=== PATIENT | male | born 1960 | race Caucasian/White ===

== ENCOUNTER 2024-04-24 10:15 | Inpatient (IN) | payer MEDICARE ==
[2024-04-24] MEDS ORDERED: Aspirin Chewable 81 MG TAB ONE (11:06)
[2024-04-24] MEDS ORDERED: Ondansetron ODT 4 MG TAB ONE (11:06)
[2024-04-24 11:07] LABS: #Basophils Less than 0.03 10x3/uL (0.0-0.2); #Eosinophils Less than 0.03 10x3/uL (0.0-0.7); %Basophils 0.1 % (0.0-1.0); %Lymphocytes 7.1 % (21.0-51.0); %Monocytes 6.9 % (0.0-10.0); %Neutrophils 85.3 % (42.0-75.0); Hematocrit 38.4 % (42.0-52.0); Hemoglobin 12.9 g/dL (14.0-18.0); Mean Corpuscular HGB CONC 33.6 g/dL (32.0-36.0); Mean Corpuscular Hemoglobin 29.7 pg (27.0-31.0); Mean Corpuscular Volume 88.5 fL (78.0-98.0); Mean Platelet Volume 11.6 fL (7.4-10.4); Platelet Count 139 10x3/uL (130-400); Red Blood Cell (RBC) Count 4.34 mill/uL (4.70-6.10)
[2024-04-24 11:30] LABS: ALT (SGPT) 292 U/L (8-55); AST (SGOT) 184 U/L (5-34); Albumin 3.5 g/dL (3.4-4.8); Alkaline Phosphatase 70 U/L (40-110); Anion Gap 22 mmol/L (10-20); BUN (Urea Nitrogen) 81 mg/dL (8.4-25.7); Bilirubin, Total 0.9 mg/dL (0.2-1.2); Calc. Creatinine Clearance 0 mL/min (70-130); Calcium 8.7 mg/dL (7.8-10.44); Carbon Dioxide 19 mmol/L (23-31); Chloride 99 mmol/L (98-107); Estimated GFR 20; Globulin 2.7 g/dL (2.4-3.5); Glucose 210 mg/dL (80-115); Potassium 4.9 mmol/L (3.5-5.1); Protein, Total 6.2 g/dL (5.8-8.1); Sodium 135 mmol/L (136-145)
[2024-04-24 12:01] LABS: Troponin I 0.043 ng/mL (< 0.028)
[2024-04-24] MEDS ORDERED: Famotidine/PF 20 mg/2ml Vial ONE (12:05)
[2024-04-24] MEDS ORDERED: Pantoprazole 40 MG VIAL ONE (12:05)
[2024-04-24] MEDS ORDERED: Guaifenesin DM 100-10/5 ML UDCUP PO PRN (12:34)
[2024-04-24] MEDS ORDERED: DOBUTamine 500 mg/250 ml 250 ML IVPB SCH (12:45)
[2024-04-24] MEDS ORDERED: DOBUTamine 500 mg/250 ml 250 ML ONE (12:47)
[2024-04-24] MEDS ORDERED: Enoxaparin 100 MG (1 mL) SYRINGE ONE (15:30)
[2024-04-24] MEDS: Furosemide 40 MG (4 mL) VIAL SLOW IVP SCH (16:55)
[2024-04-24] MEDS ORDERED: Electrolyte Replacement Protocol 1 EACH FS SCH (17:15)
[2024-04-24 17:52] LABS: Troponin I 0.042 ng/mL (< 0.028)
[2024-04-24] MEDS: Amiodarone 200 MG TAB PO SCH (21:12)
[2024-04-25] MEDS ORDERED: Apixaban 5 MG TAB PO SCH ×2 (01:00→11:00)
[2024-04-25] MEDS: Apixaban 5 MG TAB PO SCH (03:00)
[2024-04-25] MEDS: Acetaminophen 325 MG TAB PO PRN (03:45)
[2024-04-25 04:02] LABS: #Basophils Less than 0.03 10x3/uL (0.0-0.2); #Eosinophils Less than 0.03 10x3/uL (0.0-0.7); %Basophils 0.1 % (0.0-1.0); %Eosinophils 0.1 % (0.0-10.0); %Lymphocytes 7.2 % (21.0-51.0); %Monocytes 8.1 % (0.0-10.0); Hematocrit 37.5 % (42.0-52.0); Hemoglobin 12.5 g/dL (14.0-18.0); Mean Corpuscular HGB CONC 33.3 g/dL (32.0-36.0); Mean Corpuscular Hemoglobin 30.5 pg (27.0-31.0); Mean Corpuscular Volume 91.5 fL (78.0-98.0); Mean Platelet Volume 10.4 fL (7.4-10.4); Platelet Count 154 10x3/uL (130-400); RBC Distribution Width 15.1 % (11.5-14.5)
[2024-04-25 04:28] LABS: ALT (SGPT) 250 U/L (8-55); AST (SGOT) 134 U/L (5-34); Albumin 3.5 g/dL (3.4-4.8); Alkaline Phosphatase 69 U/L (40-110); Anion Gap 16 mmol/L (10-20); BUN (Urea Nitrogen) 68 mg/dL (8.4-25.7); Bilirubin, Total 0.9 mg/dL (0.2-1.2); Calc. Creatinine Clearance 48 mL/min (70-130); Calcium 8.7 mg/dL (7.8-10.44); Carbon Dioxide 25 mmol/L (23-31); Chloride 101 mmol/L (98-107); Estimated GFR 30; Globulin 2.6 g/dL (2.4-3.5); Glucose 75 mg/dL (80-115); Magnesium 2.1 mg/dL (1.6-2.6); Potassium 3.8 mmol/L (3.5-5.1); Protein, Total 6.1 g/dL (5.8-8.1); Sodium 138 mmol/L (136-145)
[2024-04-25] MEDS ORDERED: Enoxaparin 30 MG (0.3 mL) SYRINGE SC SCH (09:00)
[2024-04-25] MEDS: Pantoprazole DR 40 MG TAB PO SCH (09:17)
[2024-04-25] MEDS: Potassium Chloride 20 MEQ TAB PO SCH (09:17)
[2024-04-25] MEDS: DOBUTamine 500 mg/250 ml 250 ML IVPB SCH (10:37)
[2024-04-25] MEDS ORDERED: Glucagon 1 MG/ML KIT IM PRN (14:02)
[2024-04-25] MEDS ORDERED: Dextrose 5% in Water 1,000 ML IV PRN (14:02)
[2024-04-25] MEDS: Insulin Lispro 100 UNIT/ML 10 ML VIAL SC PRN (16:10)
[2024-04-26] MEDS: DOPamine 400 MG/D5W 250 ML 250 ML IVPB SCH (00:28)
[2024-04-26] MEDS: Ondansetron PF 4 MG/2 ML Vial IVP PRN (00:30)
[2024-04-26] MEDS: DOPamine 400 MG/D5W 250 ML 250 ML ONE (00:30)
[2024-04-26] MEDS: Sodium Chloride 0.9% 250 ML IV SCH (04:22)
[2024-04-26 05:40] LABS: Anion Gap 14 mmol/L (10-20); BUN (Urea Nitrogen) 49 mg/dL (8.4-25.7); Calc. Creatinine Clearance 49 mL/min (70-130); Calcium 8.6 mg/dL (7.8-10.44); Carbon Dioxide 29 mmol/L (23-31); Chloride 96 mmol/L (98-107); Estimated GFR 36; Glucose 172 mg/dL (80-115); Sodium 135 mmol/L (136-145)
[2024-04-26 06:41] LABS: #Basophils Less than 0.03 10x3/uL (0.0-0.2); %Basophils 0.1 % (0.0-1.0); %Eosinophils 1.8 % (0.0-10.0); %Lymphocytes 5.4 % (21.0-51.0); %Neutrophils 82.1 % (42.0-75.0); Hematocrit 36.6 % (42.0-52.0); Hemoglobin 11.8 g/dL (14.0-18.0); Mean Corpuscular HGB CONC 32.2 g/dL (32.0-36.0); Mean Corpuscular Hemoglobin 30.1 pg (27.0-31.0); Mean Corpuscular Volume 93.4 fL (78.0-98.0); Mean Platelet Volume 11.4 fL (7.4-10.4); Platelet Count 148 10x3/uL (130-400); RBC Distribution Width 15.2 % (11.5-14.5); Red Blood Cell (RBC) Count 3.92 mill/uL (4.70-6.10)
[2024-04-26] MEDS: Apixaban 5 MG TAB PO SCH (20:11)
[2024-04-27] MEDS: Dexmedetomidine In 0.9 % NaCl 100 ML IV SCH (02:35)
[2024-04-27] MEDS: Dexmedetomidine In 0.9 % NaCl 100 ML ONE (03:09)
[2024-04-27 04:56] LABS: Anion Gap 11 mmol/L (10-20); BUN (Urea Nitrogen) 38 mg/dL (8.4-25.7); Calc. Creatinine Clearance 60 mL/min (70-130); Calcium 8.2 mg/dL (7.8-10.44); Carbon Dioxide 29 mmol/L (23-31); Chloride 95 mmol/L (98-107); Estimated GFR 45; Glucose 279 mg/dL (80-115); Potassium 4.6 mmol/L (3.5-5.1); Sodium 130 mmol/L (136-145)
[2024-04-27] MEDS: Senokot S 8.6-50 MG TAB PO PRN (05:08)
[2024-04-27 05:45] VITALS: BMI 33.0
[2024-04-27] MEDS: Lactulose 20 GM (30 mL) UDCUP PO SCH (11:50)
[2024-04-28 04:00] LABS: ALT (SGPT) 128 U/L (8-55); AST (SGOT) 42 U/L (5-34); Albumin 3.3 g/dL (3.4-4.8); Alkaline Phosphatase 74 U/L (40-110); Anion Gap 13 mmol/L (10-20); BUN (Urea Nitrogen) 30 mg/dL (8.4-25.7); Bilirubin, Total 1.1 mg/dL (0.2-1.2); Calc. Creatinine Clearance 66 mL/min (70-130); Calcium 8.4 mg/dL (7.8-10.44); Carbon Dioxide 29 mmol/L (23-31); Chloride 96 mmol/L (98-107); Estimated GFR 53; Globulin 2.6 g/dL (2.4-3.5); Glucose 240 mg/dL (80-115); Potassium 4.6 mmol/L (3.5-5.1); Protein, Total 5.9 g/dL (5.8-8.1); Sodium 133 mmol/L (136-145)
[2024-04-28] MEDS ORDERED: Vasopressin 20 UNITS/ML VIAL ONE (08:26)
[2024-04-28] MEDS ORDERED: Etomidate 40 MG (20 mL) VIAL ONE (08:27)
[2024-04-28] MEDS ORDERED: Lidocaine 2% PF 5 ML VIAL ONE (08:29)
[2024-04-28] MEDS ORDERED: ePHEDrine Sulfate 50 MG/10 ML VIAL ONE (08:29)
[2024-04-28] MEDS ORDERED: PROPOFOL 20 ML ONE (08:30)
[2024-04-28] MEDS ORDERED: PHENYLEPHRINE-NS 100 MCG/ML 10 ML SYRINGE ONE (09:25)
[2024-04-28] MEDS: Carvedilol 3.125 MG TAB PO SCH (16:43)
[2024-04-28] MEDS: Melatonin 3 MG TAB PO PRN (23:13)
[2024-04-29 04:25] LABS: Anion Gap 13 mmol/L (10-20); BUN (Urea Nitrogen) 25 mg/dL (8.4-25.7); Calc. Creatinine Clearance 68 mL/min (70-130); Calcium 8.3 mg/dL (7.8-10.44); Carbon Dioxide 30 mmol/L (23-31); Chloride 93 mmol/L (98-107); Estimated GFR 55; Glucose 237 mg/dL (80-115); Potassium 4.4 mmol/L (3.5-5.1); Sodium 132 mmol/L (136-145)
[2024-04-29] MEDS: DOBUTamine 500 mg/250 ml 250 ML IVPB SCH (11:26)
[2024-04-30 05:14] LABS: Anion Gap 16 mmol/L (10-20); BUN (Urea Nitrogen) 31 mg/dL (8.4-25.7); Calc. Creatinine Clearance 61 mL/min (70-130); Carbon Dioxide 26 mmol/L (23-31); Chloride 92 mmol/L (98-107); Estimated GFR 47; Glucose 317 mg/dL (80-115); Potassium 4.5 mmol/L (3.5-5.1); Sodium 129 mmol/L (136-145)
[2024-04-30] MEDS: Furosemide 40 MG TAB PO SCH (09:00)
[2024-04-30] MEDS: Empagliflozin 10 MG TAB PO SCH (10:18)
[2024-05-01 05:10] LABS: Anion Gap 16 mmol/L (10-20); BUN (Urea Nitrogen) 37 mg/dL (8.4-25.7); Calc. Creatinine Clearance 54 mL/min (70-130); Calcium 9.4 mg/dL (7.8-10.44); Carbon Dioxide 28 mmol/L (23-31); Chloride 93 mmol/L (98-107); Estimated GFR 40; Glucose 227 mg/dL (80-115); Potassium 4.4 mmol/L (3.5-5.1); Sodium 133 mmol/L (136-145)
[2024-05-01] MEDS: Furosemide 40 MG TAB PO SCH (05:58)
[2024-05-01] MEDS ORDERED: Carvedilol 3.125 MG TAB PO SCH (07:39)
[2024-05-01] MEDS: Aspirin 81 mg Enteric Coated Tablet PO SCH (09:17)
[2024-05-01] MEDS: Ranolazine ER 500 MG TAB PO SCH (09:17)
[2024-05-01] MEDS: Empagliflozin 10 MG TAB PO SCH (09:17)
[2024-05-01] MEDS: Carvedilol 6.25 MG TAB PO SCH (09:18)
[2024-05-01 13:49] LABS: Glucose POC Confirmation 440 mg/dL (83-110)
[2024-05-01] MEDS: Insulin Lispro 100 UNIT/ML 10 ML VIAL SC SCH (14:41)
[2024-05-01 15:37] VITALS: BMI 33.5
[2024-05-01] MEDS: Amiodarone 200 MG TAB PO SCH (20:45)
[2024-05-01] MEDS: metFORMIN 500 MG TAB PO SCH (20:45)
[2024-05-01] MEDS: Atorvastatin Calcium 40 MG TAB PO SCH (20:45)
[2024-05-02 05:24] LABS: Anion Gap 16 mmol/L (10-20); BUN (Urea Nitrogen) 37 mg/dL (8.4-25.7); Calc. Creatinine Clearance 51 mL/min (70-130); Calcium 9.2 mg/dL (7.8-10.44); Carbon Dioxide 26 mmol/L (23-31); Chloride 97 mmol/L (98-107); Estimated GFR 37; Glucose 216 mg/dL (80-115); Potassium 4.5 mmol/L (3.5-5.1); Sodium 134 mmol/L (136-145)
[2024-05-02] MEDS ORDERED: Glimepiride 4 MG TAB PO SCH (07:30)
[2024-05-02] MEDS: hydrALAZINE 25 MG TAB PO SCH (08:53)
[2024-05-02] MEDS: Glimepiride 4 MG TAB PO SCH (08:55)
[2024-05-02] MEDS: Apixaban 5 MG TAB PO SCH (20:49)
[2024-05-03 04:31] LABS: Anion Gap 19 mmol/L (10-20); BUN (Urea Nitrogen) 36 mg/dL (8.4-25.7); Calc. Creatinine Clearance 58 mL/min (70-130); Calcium 9.3 mg/dL (7.8-10.44); Carbon Dioxide 24 mmol/L (23-31); Chloride 95 mmol/L (98-107); Estimated GFR 46; Glucose 203 mg/dL (80-115); Potassium 4.3 mmol/L (3.5-5.1); Sodium 134 mmol/L (136-145)
[2024-05-03] MEDS: metFORMIN 500 MG TAB PO SCH (08:28)
[2024-05-03] MEDS ORDERED: Insulin Glargine 30 UNITS/0.3 ML VIAL SC SCH (09:00)
[2024-05-03] MEDS ORDERED: Metoclopramide HCl 10 MG (2 mL) VIAL IVP PRN (14:26)
[2024-05-03] MEDS: Metoclopramide HCl 10 MG (2 mL) VIAL IVP SCH (14:35)
[2024-05-04] MEDS: Bisacodyl 10 MG SUPP PR PRN (02:26)
[2024-05-04 05:43] LABS: Anion Gap 22 mmol/L (10-20); BUN (Urea Nitrogen) 50 mg/dL (8.4-25.7); Calc. Creatinine Clearance 40 mL/min (70-130); Calcium 9.2 mg/dL (7.8-10.44); Carbon Dioxide 19 mmol/L (23-31); Chloride 94 mmol/L (98-107); Estimated GFR 29; Glucose 209 mg/dL (80-115); Potassium 5.7 mmol/L (3.5-5.1); Sodium 129 mmol/L (136-145)
[2024-05-04 09:16] LABS: Anion Gap 19 mmol/L (10-20); BUN (Urea Nitrogen) 51 mg/dL (8.4-25.7); Calc. Creatinine Clearance 40 mL/min (70-130); Carbon Dioxide 22 mmol/L (23-31); Chloride 93 mmol/L (98-107); Estimated GFR 29; Glucose 272 mg/dL (80-115); Potassium 5.3 mmol/L (3.5-5.1); Sodium 129 mmol/L (136-145)
[2024-05-04] MEDS ORDERED: Metoclopramide HCl 10 MG (2 mL) VIAL IVP PRN (09:53)
[2024-05-04] MEDS: Sodium Chloride 0.9% 1,000 ML IV SCH (11:56)
[2024-05-04] MEDS: LOKELMA 10 GM PACKET PO SCH (11:56)
[2024-05-04 17:17] LABS: Creatinine, Urine 81.87 mg/dL (63-166); Protein, Urine Random Quant 22 mg/dL (1-14); Sodium, Urine Less than 20 mmol/L (Not Available); Urea Nitrogen, Random Urine 496 mg/dl
[2024-05-04] MEDS: Insulin Glargine 30 UNITS/0.3 ML VIAL SC SCH (21:16)
[2024-05-05 05:26] LABS: Iron 35 ug/dL (65-175); Iron Binding Capacity, Total 341 mcg/dL (261-462)
[2024-05-05 05:28] LABS: Anion Gap 18 mmol/L (10-20); BUN (Urea Nitrogen) 53 mg/dL (8.4-25.7); Calc. Creatinine Clearance 40 mL/min (70-130); Carbon Dioxide 21 mmol/L (23-31); Chloride 97 mmol/L (98-107); Estimated GFR 30; Glucose 146 mg/dL (80-115); Potassium 4.3 mmol/L (3.5-5.1); Sodium 132 mmol/L (136-145)
[2024-05-05] MEDS: Mineral Oil ENEMA PR SCH (15:27)
[2024-05-06 05:22] LABS: Anion Gap 15 mmol/L (10-20); BUN (Urea Nitrogen) 41 mg/dL (8.4-25.7); Calc. Creatinine Clearance 53 mL/min (70-130); Calcium 8.8 mg/dL (7.8-10.44); Carbon Dioxide 23 mmol/L (23-31); Chloride 98 mmol/L (98-107); Estimated GFR 41; Glucose 64 mg/dL (80-115); Potassium 3.9 mmol/L (3.5-5.1); Sodium 132 mmol/L (136-145)
[2024-05-06] MEDS: Lactulose 20 GM (30 mL) UDCUP PO SCH (14:36)
[2024-05-06] MEDS: Dextrose 50% Abboject 50 ML SYRINGE SLOW IVP PRN (19:47)
[2024-05-07 06:10] LABS: #Basophils Less than 0.03 10x3/uL (0.0-0.2); %Basophils 0.2 % (0.0-1.0); %Eosinophils 0.5 % (0.0-10.0); %Lymphocytes 6.8 % (21.0-51.0); %Monocytes 8.5 % (0.0-10.0); %Neutrophils 83.4 % (42.0-75.0); Hematocrit 42.6 % (42.0-52.0); Hemoglobin 13.7 g/dL (14.0-18.0); Mean Corpuscular HGB CONC 32.2 g/dL (32.0-36.0); Mean Corpuscular Hemoglobin 29.4 pg (27.0-31.0); Mean Corpuscular Volume 91.4 fL (78.0-98.0); Mean Platelet Volume 10.9 fL (7.4-10.4); Platelet Count 185 10x3/uL (130-400); RBC Distribution Width 15.6 % (11.5-14.5); Red Blood Cell (RBC) Count 4.66 mill/uL (4.70-6.10)
[2024-05-07 06:30] LABS: ALT (SGPT) 28 U/L (8-55); AST (SGOT) 26 U/L (5-34); Albumin 3.6 g/dL (3.4-4.8); Alkaline Phosphatase 85 U/L (40-110); Anion Gap 16 mmol/L (10-20); BUN (Urea Nitrogen) 37 mg/dL (8.4-25.7); Calc. Creatinine Clearance 57 mL/min (70-130); Carbon Dioxide 24 mmol/L (23-31); Chloride 95 mmol/L (98-107); Estimated GFR 43; Glucose 90 mg/dL (80-115); Protein, Total 6.6 g/dL (5.8-8.1); Sodium 131 mmol/L (136-145)
[2024-05-07] MEDS: Insulin Glargine 30 UNITS/0.3 ML VIAL SC SCH (09:13)
[2024-05-07] MEDS: Lactulose 20 GM (30 mL) UDCUP PO SCH (09:14)
[2024-05-08 06:21] LABS: #Basophils Less than 0.03 10x3/uL (0.0-0.2); %Basophils 0.2 % (0.0-1.0); %Eosinophils 0.6 % (0.0-10.0); %Lymphocytes 7.6 % (21.0-51.0); %Monocytes 8.4 % (0.0-10.0); %Neutrophils 82.6 % (42.0-75.0); Hematocrit 42.4 % (42.0-52.0); Hemoglobin 13.3 g/dL (14.0-18.0); Mean Corpuscular HGB CONC 31.4 g/dL (32.0-36.0); Mean Corpuscular Hemoglobin 29.6 pg (27.0-31.0); Mean Corpuscular Volume 94.2 fL (78.0-98.0); Mean Platelet Volume 10.9 fL (7.4-10.4); Platelet Count 210 10x3/uL (130-400); RBC Distribution Width 15.7 % (11.5-14.5)
[2024-05-08 07:24] LABS: ALT (SGPT) 29 U/L (8-55); AST (SGOT) 30 U/L (5-34); Albumin 3.6 g/dL (3.4-4.8); Alkaline Phosphatase 84 U/L (40-110); Anion Gap 17 mmol/L (10-20); BUN (Urea Nitrogen) 33 mg/dL (8.4-25.7); Calc. Creatinine Clearance 60 mL/min (70-130); Calcium 9.1 mg/dL (7.8-10.44); Carbon Dioxide 23 mmol/L (23-31); Chloride 96 mmol/L (98-107); Estimated GFR 43; Globulin 2.9 g/dL (2.4-3.5); Glucose 53 mg/dL (80-115); Potassium 4.2 mmol/L (3.5-5.1); Protein, Total 6.5 g/dL (5.8-8.1); Sodium 132 mmol/L (136-145)
[2024-05-08] MEDS: Insulin Glargine 30 UNITS/0.3 ML VIAL SC SCH (09:26)
[2024-05-08] MEDS: Empagliflozin 10 MG TAB PO SCH (09:27)
[2024-05-09 04:37] LABS: Anion Gap 14 mmol/L (10-20); BUN (Urea Nitrogen) 34 mg/dL (8.4-25.7); Calc. Creatinine Clearance 60 mL/min (70-130); Calcium 8.8 mg/dL (7.8-10.44); Carbon Dioxide 24 mmol/L (23-31); Chloride 98 mmol/L (98-107); Estimated GFR 43; Glucose 93 mg/dL (80-115); Potassium 4.2 mmol/L (3.5-5.1); Sodium 132 mmol/L (136-145)
[2024-05-09] MEDS: Insulin Glargine 30 UNITS/0.3 ML VIAL SC SCH (10:53)
[2024-05-09] MEDS: Hydrocortisone 2.5% Cream 30 GM TUBE TOP SCH (21:00)
[2024-05-10 05:25] LABS: Anion Gap 17 mmol/L (10-20); BUN (Urea Nitrogen) 34 mg/dL (8.4-25.7); Calc. Creatinine Clearance 51 mL/min (70-130); Calcium 8.6 mg/dL (7.8-10.44); Carbon Dioxide 23 mmol/L (23-31); Chloride 94 mmol/L (98-107); Estimated GFR 37; Glucose 178 mg/dL (80-115); Potassium 4.6 mmol/L (3.5-5.1); Sodium 129 mmol/L (136-145)
[2024-05-10] MEDS: Insulin Glargine 30 UNITS/0.3 ML VIAL SC SCH (09:20)
[2024-05-10 12:14] VITALS: TEMP 96.9
[2024-05-10 16:03] VITALS: BP 111/78
== END 2024-05-10 16:50 | disposition home health service (06) | DRG 291 ==
LOC: ERS 10:15 → ERHOLD 12:36 → CCU 16:36 → 2NO 04-29 06:40
PROVIDERS: ADMIT Hospitalist; ATTEND Internal Medicine
PROC: 5A2204Z Restoration of Cardiac Rhythm, Single (ICD-10-PCS; principal; 2024-05-01)
DX: I13.0 Hypertensive heart and chronic kidney disease with heart failure and stage 1 through stage 4 chronic kidney disease, or unspecified chronic kidney disease (principal); I50.23 Acute on chronic systolic (congestive) heart failure; R57.0 Cardiogenic shock; J96.01 Acute respiratory failure with hypoxia; N17.9 Acute kidney failure, unspecified; I48.92 Unspecified atrial flutter; I47.20 Ventricular tachycardia, unspecified; E87.20 Acidosis, unspecified; E87.1 Hypo-osmolality and hyponatremia; I25.10 Atherosclerotic heart disease of native coronary artery without angina pectoris; I25.2 Old myocardial infarction; I48.91 Unspecified atrial fibrillation; E11.9 Type 2 diabetes mellitus without complications; Z90.49 Acquired absence of other specified parts of digestive tract; Z79.899 Other long term (current) drug therapy; Z79.84 Long term (current) use of oral hypoglycemic drugs; E78.00 Pure hypercholesterolemia, unspecified; Z87.891 Personal history of nicotine dependence; Z79.01 Long term (current) use of anticoagulants; Z79.4 Long term (current) use of insulin; I42.9 Cardiomyopathy, unspecified; N18.30 Chronic kidney disease, stage 3 unspecified; E87.5 Hyperkalemia; D63.1 Anemia in chronic kidney disease; E66.01 Morbid (severe) obesity due to excess calories; Z68.34 Body mass index [BMI] 34.0-34.9, adult
CPT/HCPCS: 36415; 36416; 71045; 76770; 80048; 80053; 82306; 82570; 82728; 83540; 83550; 83735; 83880; 83970; 84156; 84300; 84443; 84484; 84540; 85025; 85379; 92960; 93005; 93010; 93306; 93312; 93798; 94660; 96372; 96374; 96375; 97139; J1250; J1265; J1650; J1815; J1940; J2405; J2470; J2704; J2765; J3490; J7030; J7999; Q0162